=== PATIENT | female | born 1980 | race American Indian/Alaskan Native ===

== ENCOUNTER 2018-01-18 06:01 | Day surgery (SDC) | payer MEDICAID ==
--- NOTE | 2018-01-18 08:42 | Short Stay Summary ---
Short Stay Documentation Date of service: 01/18/18 Narrative H&P: Pt is a 37yo BF LMP 01/08/18 presents for permanent sterilization. - History Principal diagnosis: Desires permanent sterilization H&P: obtained from office Past Medical History: No medical history Past Surgical History: No surgical history Social history: no significant social history, - Physical exam General appearance: no acute distress Integumentary: no rash HEENT: Atraumatic Lungs: Clear to auscultation Breasts: deferred Heart: Regular rate Gastrointestinal: normal Female Genitourinary: deferred Rectal Exam: deferred Extremities: no ischemia, No edema Neurological: Normal speech - Brief post op/procedure progress note Date of procedure: 01/18/18 Pre-op diagnosis: Desires permanent sterilization Post-op diagnosis: same Procedure: Laproscopic Bilateral Tubal Ligation Anesthesia: GETA Findings: Normal uterus. Normal tubes and ovaries bilaterally. Normal appendix. Surgeon: SEYMOUR MENENDEZ Estimated blood loss: minimal Pathology: none Condition: stable - Hospital course Hospital course: Unremarkable. - Disposition Condition at discharge: Good Disposition: DC-01 TO HOME OR SELFCARE Short Stay Discharge Plan Activity: no restrictions Diet: regular Wound: open to air, keep clean and dry Additional Instructions: REMOVE SCOPOLAMINE PATCH FROM BEHIND RIGHT EAR BY 01/21/18. FOLD PATCH TOGETHER TO THROW AWAY. WASH HANDS AFTER REMOVING SCOPOLAMINE PATCH. Follow up with: PRIMARY CARE, [Primary Care Provider] - 7 Days SEYMOUR MENENDEZ MD [Staff Physician] - 14 Days Prescriptions: HYDROcodone/APAP 5-325 [[place] 5/325] 1 each PO Q6HR PRN #20 tablet PRN Reason: Pain
[2018-01-18] MEDS ORDERED: ANCEF/STERILE WATER 2 GM/20 ML 2 GM/20 ML SYRINGE IV NR (09:00)
[2018-01-18] MEDS ORDERED: NACL BACTERIOSTATIC INFILTRATI ONE (09:38)
[2018-01-18] MEDS ORDERED: DILAUDID IV PRN ×2 (09:50→13:24)
[2018-01-18] MEDS ORDERED: TORADOL IV PRN (09:50)
[2018-01-18] MEDS ORDERED: PERCOCET 5/325 PO PRN (09:50)
[2018-01-18] MEDS ORDERED: ZOFRAN IV PRN (09:50)
--- NOTE | 2018-01-18 09:53 | Anesthesia Consultation ---
Anesthesia Consult and Med Hx Date of service: 01/18/18 - Airway Anesthetic Teeth Evaluation: Good ROM Head & Neck: Adequate Mental/Hyoid Distance: Adequate Mallampati Class: Class II Intubation Access Assessment: Probably Good - Pulmonary Exam CTA: Yes - Cardiac Exam Cardiac Exam: RRR - Pre-Operative Health Status ASA Pre-Surgery Classification: ASA2 Proposed Anesthetic Plan: General - Pulmonary Hx Smoking: No Hx Sleep Apnea: No - Cardiovascular System Hx Hypertension: No - Gastrointestinal Hx Gastroesophageal Reflux Disease: No - Endocrine Hx Renal Disease: No Hx Insulin Dependent Diabetes: No Hx Non-Insulin Dependent Diabetes: No - Hematic Hx Sickle Cell Disease: Yes (SICKLE CELL TRAIT) - Other Systems Hx Alcohol Use: Yes (SOCIALLY) Hx Substance Use: No Hx Cancer: No
--- NOTE | 2018-01-18 09:53 | Anesthesia Day of Surgery ---
Anesthesia Day of Surgery - Day of Surgery Patient Examined: Yes Patient H&P Reviewed: Yes Patient is NPO: Yes
[2018-01-18] MEDS ORDERED: LACTATED RINGERS 1,000 ML IV SCH (10:00)
[2018-01-18] MEDS ORDERED: VERSED IV NR (10:00)
[2018-01-18] MEDS ORDERED: TRANSDERM-SCOP TD NR (10:00)
[2018-01-18 10:08] LABS: Hematocrit 40.3 % (30.3-42.9); Hemoglobin 13.4 gm/dl (10.1-14.3)
[2018-01-18] MEDS ORDERED: XYLOCAINE MPF 2% ONE (11:27)
[2018-01-18] MEDS ORDERED: DIPRIVAN 10 MG/ML IV ONE (11:27)
[2018-01-18] MEDS ORDERED: DILAUDID ONE ×2 (11:28→13:21)
[2018-01-18] MEDS ORDERED: MARCAINE 0.25% INFILTRATI ONE (11:46)
[2018-01-18] MEDS ORDERED: MARCAINE 0.5% 30 ML INFILTRATI ONE (11:50)
[2018-01-18] MEDS ORDERED: DECADRON ONE (12:20)
[2018-01-18] MEDS ORDERED: ZEMURON IV ONE (12:20)
[2018-01-18] MEDS ORDERED: ZOFRAN ONE (12:20)
[2018-01-18] MEDS ORDERED: TORADOL ONE (12:40)
[2018-01-18] MEDS ORDERED: MARCAINE 0.5% INFILTRATI ONE (12:41)
[2018-01-18] MEDS ORDERED: NACL 0.9% IR ONE (12:48)
--- NOTE | 2018-01-18 13:00 | Operative Report ---
Operative Report Operative Report: PREOPERATIVE DIAGNOSIS: Desires permanent sterilization POSTOPERATIVE DIAGNOSIS: Same OPERATIVE PROCEDURE: Laparoscopic bilateral tubal ligation. SURGEON: Santo Hansen MD ANESTHESIA: Gen. endotracheal intubation ANESTHESIOLOGIST: Dr. Garcia ESTIMATED BLOOD LOSS: Minimal FINDINGS: Normal uterus. Normal tubes and ovaries bilaterally. Normal appendix. COMPLICATIONS: None COUNTS: Correct x3. PROCEDURE: After the patient was correctly identified and after general anesthesia was administered, the patient was prepped and draped in usual sterile fashion and placed in dorsal lithotomy position. First, the bladder was emptied using a straight catheter. Next, a speculum was placed in the vaginal vault and the anterior lip of the cervix was grasped using a single- tooth tenaculum. The uterine manipulator was then placed and the tenaculum and speculum were removed. Attention was then turned to the abdomen where first a periumbilical incision was made using a skin knife, and the Optiview trocar was inserted under direct visualization. After an adequate amount of abdominal insufflation, visualization of the pelvic organs found the uterus to be normal, and the tubes and ovaries to be normal bilaterally. Next, the left fallopian tube was grasped using the Kleppingers, and after identifying the fimbriated end of the left tube, this tube was cauterized in 3 continuous places along the proximal portion of the left tube. The same procedure was performed on the right fallopian tube after first identifying the fimbriated end of the right tube. This tube was also cauterized in 3 continuous places along the proximal portion of the right tube. At this point, the procedure was then considered complete. All instruments were removed from the abdomen. The abdomen was deflated and the periumbilical incision was closed using 0 Vicryl suture in a [id number] configuration on the fascia, followed by 4-0 Monocryl suture in sub-cuticular fashion on the skin. The incision was also infiltrated using 0.5% Marcaine solution. The uterine manipulator was removed. The patient tolerated the procedure well and was transferred to recovery room stable condition.
[2018-01-18 15:09] VITALS: BP 123/79
== END 2018-01-18 15:05 | disposition home or self-care (01) ==
LOC: OR 06:01
PROVIDERS: ATTEND Obstetrics & Gynecology
DX: Z30.2 Encounter for sterilization (principal); D57.3 Sickle-cell trait; Z79.899 Other long term (current) drug therapy
CPT/HCPCS: 36415; 58670; 81025; 85014; 85018; J0690; J1100; J1170; J1885; J2250; J2405; J2704; J7120